=== PATIENT | female | born 1975 | race Caucasian/White ===

== ENCOUNTER → 2017-08-07 | Outpatient (CLI) | payer OTHER ==
--- NOTE | 2017-08-08 07:51 | MAMMOGRAPHY REPORT ---
BILATERAL DIGITAL DIAGNOSTIC MAMMOGRAM TOMOSYNTHESIS WITH CAD AND TARGETED BILATERAL ULTRASOUND: 08/07 CLINICAL HISTORY: 41-year-old woman presents with pain in both breasts mostly throughout the superior aspects, upper outer quadrants and sensitivity of the nipples. No palpable mass, skin changes or ni pple discharge. Family history of breast cancer = sister diagnosed in early 40s. TECHNIQUE: Bilateral breast tomosynthesis in addition to standard 2D mammography was performed. Curr ent study was also evaluated with a Computer Aided Detection (CAD) system. COMPARISON: No prior exams were available for comparison. BREAST COMPOSITION: The tissue of both breasts is extremely dense, which lowers the sensitivity of m ammography. FINDINGS: No suspicious spiculated or irregular mass, focal area of architectural distortion, cluste r of suspicious microcalcifications is seen. There are asymmetries in the lateral posterior right br east on the cc view which could represent normal overlapping tissue although further evaluation with ultrasound was performed. Another area of asymmetry is seen in the posterior right breast along the posterior nipple line on the CC view on tomosynthesis slice 44/72. Evaluation with ultrasound was al so performed in this location. Targeted ultrasound was performed in both breasts with particular attention to the 12:00, upper outer quadrant, axillary and retroareolar aspect of the left breast, upper outer quadrant, retroareolar, 1 2:00 and slightly medial right breast. Sonographically normal tissue is seen bilaterally, without ev idence of a discrete solid or cystic mass. No suspicious axillary lymphadenopathy is identified in t he right or left axilla. No evidence of cysts or other suspicious findings to correlate with the brandy mographic asymmetries in the lateral or retroareolar breast, which most likely represented normal ove rlapping tissue. IMPRESSION: ACR BI-RADS CATEGORY 2: BENIGN, TARGETED ULTRASOUND ACR BI-RADS CATEGORY 2: BENIGN There is no mammographic or targeted sonographic evidence of malignancy. No suspicious mammographic or sonographic finding identified in the breasts to explain pain throughout the superior breasts or s ensitivity of the nipples. Therefore, clinical follow-up is recommended, as biopsy of a clinically s uspicious mass should not be precluded by negative imaging. Otherwise, recommend bilateral tomosynth esis mammography in one year. These results and recommendations were discussed with the patient at the time of the exam. Approximately 10% of breast cancers are not detected with mammography. A negative mammographic report should not delay biopsy if a clinically suggestive mass is present. Gem Ku M.D. ay/:08/07/2017 12:27:21 Medical Historian: Pablo LUNA(Oscar)(Dami), [facility] letter sent: Normal 1/2 BI-RADS Code: ACR BI-RADS Category 2: Benign Ultrasound BI-RADS: ACR BI-RADS Category 2: Benign
== END | disposition home or self-care (01) ==
LOC: C.MAMM 10:35
PROVIDERS: ATTEND Family Medicine
DX: N64.4 Mastodynia (principal)